=== PATIENT | male | born 1990 | race Two or more races ===

== ENCOUNTER 2023-11-10 07:32 | Outpatient (CLI) | payer MEDICAID | END 2023-11-10 23:59 | disposition home or self-care (01) | LOC: RAD 07:32 | PROVIDERS: ATTEND Physician Assistant | DX: K76.0 Fatty (change of) liver, not elsewhere classified (principal); K82.4 Cholesterolosis of gallbladder; N28.89 Other specified disorders of kidney and ureter; R74.8 Abnormal levels of other serum enzymes | CPT/HCPCS: 76700 ==